=== PATIENT | male | born 1990 | race Caucasian/White ===

== ENCOUNTER 2019-07-28 20:49 | Emergency (ER) | payer MEDICARE, MEDICAID, SELFPAY ==
[2019-07-28 21:17] VITALS: BP 127/78; PULSE 113; RESP 15; TEMP 37.2; O2SAT 94; BMI 28.4
--- NOTE | 2019-07-28 22:06 | ED_ITS ---
Entered by Sarai Cisneros, acting as scribe for Baldo Pantoja MD Jul 28, 2019 20:49 HPI - Dental/Oral General: Chief complaint: Dental/Oral Stated complaint: dental pain Time Seen by Provider: 07/28/19 22:06 Source: patient, family and RN notes reviewed Mode of arrival: ambulatory Limitations: no limitations History of Present Illness: HPI Narrative: 28 yo male presents to ED with complaints of L jaw pain. The patient states he has an abscess in his L jaw. The patient's L side swelling and jaw pain began 2 days ago. MD Complaint: tooth pain Onset (ago): day(s) (2) Duration: constant Severity: severe Relieving factors: nothing Exacerbating factors: chewing, cold, heat, drinking fluids and swallowing Context: poor dental care Associated symptoms: Reports fever(s) (99.0), gum swelling and painful swallowing Treatment prior to arrival: none Review of Systems Const: Reports: fever (99.0) Eyes: Denies: blurry vision or eye discomfort ENMT: Reports: painful swallowing Card: Denies: chest pain Resp: Denies: shortness of breath GI: Denies: abdominal pain, nausea, vomiting or diarrhea : Denies: painful urination Musc: Denies: neck pain or back pain Skin/Breast: Denies: rash Neuro: Denies: headache Psych: Denies: depression Pedro/Lymph: Denies: easy bruising All/Imm: Denies: hives Physical Exam Const: COMMON NORMALS: no apparent distress, oriented x3 and healthy appearing HENMT: COMMON NORMALS: normocephalic and head/scalp atraumatic HEAD & SCALP: normocephalic and atraumatic OTHER: Has an abscess to left lower molar with slight swelling. No trismus Eye: COMMON NORMALS: PERRL and EOMs intact bilaterally PUPIL: Yes PERRL Neck/C-Spine: COMMON NORMALS: full ROM and supple Chest: COMMONS NORMALS: inspection of chest normal and palpation of chest normal Resp: COMMON NORMALS: normal respiratory effort, no retractions, no use of accessory muscles and clear to auscultation bilaterally AUSCULTATION: clear to auscultation bilaterally Cardio: COMMON NORMALS: regular rate, regular rhythm and no murmurs RATE: regular rate RHYTHM: regular rhythm GI: COMMON NORMALS: normal to inspection, nondistended, normoactive bowel sounds, soft to palpation, non-tender and no masses PALPATION: Yes soft Extremity: COMMON NORMALS: normal to inspection and full ROM Neuro: COMMON NORMALS: oriented x3, moves all extremities and no focal motor deficits Psych: COMMON NORMALS: mental status grossly normal, thought process normal a nd cooperative THOUGHT PROCESS: normal thought process Skin: COMMON NORMALS: no rashes or lesions noted and no wounds GENERAL SKIN EXAM: no rashes or lesions noted Procedures Abscess I/D Site: oral Side (if applicable): left Local Anesthetic: bupivacaine 0.5% Amount of anesthesia used (mL): 10 Technique: incised with #11 blade Amount of fluid expressed (mL): 10 Irrigation: No Packing used?: none Course Vital Signs: Vital signs: Vital Signs Temperature 99.0 F 07/28/19 22:47 Pulse Rate 100 07/28/19 22:47 Respiratory Rate 16 07/28/19 22:47 Blood Pressure 139/66 07/28/19 22:47 Pulse Oximetry 97 07/28/19 22:47 MDM - Dental/Oral MDM Narrative: Medical decision making narrative: Patient presents here with a dental abscess. I incised and drained the abscess and he is to follow-up with a dentist soon as possible. We will place him on Keflex along with Naprosyn. Patient has no trismus and is stable for discharge. Discharge Plan Discharge Patient Disposition: Home, Self-Care Clinical Impression: Dental abscess Condition: Stable Prescriptions: New Keflex 500 mg capsule 500 mg PO Q6H 7 Days Qty: 28 RF: 0 EC-Naprosyn 500 mg tablet,delayed release (DR/EC) 500 mg PO BID PRN (Reason: pain) Qty: 20 RF: 0 Discharge Orders: Discharge Order (Routine); Ordered 07/28/19 Ordered By: Baldo Pantoja Referrals: Warren Castro FNP [Family Provider] - Discharge Diet: Advance as tolerated Discharge Activity: Resume usual activity Patient Instructions: Dental Abscess (ED) Coding Level of Care Code ED Puzzle Assembler for Chg Fwd The documentation recorded by the Blayne de la vega Valerie R accurately reflects the service I personally performed and the decisions made by Scarlett tobias Korby, MD Jul 28, 2019 20:49
[2019-07-28 22:37] VITALS: BP 139/66; PULSE 93; RESP 16; TEMP 37.2; O2SAT 95
[2019-07-28 22:47] VITALS: BP 139/66; PULSE 100; RESP 16; TEMP 37.2; O2SAT 97
[2019-07-28] MEDS: naproxen 500 mg Tablet PO (23:00)
== END 2019-07-28 23:00 | disposition home or self-care (01) ==
PROVIDERS: Emergency Provider Emergency Medicine; Family Provider Nurse Practitioner Family
DX: K04.7 Periapical abscess without sinus (principal)
CPT/HCPCS: 41800; 99281; 99282; J3490

== ENCOUNTER → 2020-05-24 09:45 | Outpatient (BNVA) | payer MEDICARE, MEDICAID, SELFPAY | PROVIDERS: Family Provider Nurse Practitioner Family; Visit Provider Registered Nurse | DX: Z20.828 Contact with and (suspected) exposure to other viral communicable diseases (principal); R05 Cough | CPT/HCPCS: 87635 ==

== ENCOUNTER → 2020-08-26 13:19 | Outpatient (BNVA) | payer MEDICARE, MEDICAID, SELFPAY | PROVIDERS: Family Provider Nurse Practitioner Family; Visit Provider Psychiatry & Neurology Psychiatry | DX: F33.1 Major depressive disorder, recurrent, moderate (principal); F17.200 Nicotine dependence, unspecified, uncomplicated; F15.10 Other stimulant abuse, uncomplicated; F70 Mild intellectual disabilities | CPT/HCPCS: 99204 ==

== ENCOUNTER → 2020-11-05 10:16 | Outpatient (BNVA) | payer MEDICARE, MEDICAID, SELFPAY | PROVIDERS: Family Provider Nurse Practitioner Family; Visit Provider Psychiatry & Neurology Psychiatry | DX: F70 Mild intellectual disabilities (principal); F15.10 Other stimulant abuse, uncomplicated; F17.200 Nicotine dependence, unspecified, uncomplicated; F33.1 Major depressive disorder, recurrent, moderate | CPT/HCPCS: 99213 ==

== ENCOUNTER → 2020-12-24 10:20 | Outpatient (BNVA) | payer MEDICARE, MEDICAID, SELFPAY | PROVIDERS: Family Provider Nurse Practitioner Family; Visit Provider Surgery | DX: Z01.812 Encounter for preprocedural laboratory examination (principal); Z20.822 Contact with and (suspected) exposure to COVID-19 | CPT/HCPCS: 87635 ==

== ENCOUNTER → 2021-01-06 13:55 | Outpatient (BNVA) | payer MEDICARE, MEDICAID, SELFPAY | PROVIDERS: Family Provider Nurse Practitioner Family; Visit Provider Surgery | DX: Z11.52 Encounter for screening for COVID-19 (principal); Z20.822 Contact with and (suspected) exposure to COVID-19 | CPT/HCPCS: 87635 ==

== ENCOUNTER 2021-01-10 07:10 | Day surgery (SDC) | payer MEDICARE, MEDICAID, SELFPAY ==
--- NOTE | 2021-01-10 07:24 | P.HP_ITS ---
Same Day Surgery H&P Indication for Procedure/HPI DATE OF PROCEDURE: January 10, 2021 CHIEF COMPLAINT/INDICATIONFOR SURGICAL PROCEDURE: Abdominal pain PREOP DIAGNOSIS: Hematemesis PLANNED PROCEDRUE: Operation Date: 01/10/21 07:45 Proposed Procedures p EGD 99489 K90.0(Not Applicable) - Ramone Kevin MD This is a 29 years old gentleman presents to my practice with history of 1 week abdominal pain associated with greasy and spicy food that makes it worse and gets better when he ingests milk or ice tea. Patient describes the pain as more dull aching without being referred have been having persistent nausea and reports vomiting of blood. He also reports to me that his gallbladder was removed Back in [address] Alex and he denies history of peptic ulcer disease or previous upper endoscopies. Also denies being on blood thinners.Patient is referred to me today for further evaluation and potential intervention in the form of endoscopy for diagnostic purposes. Interim history 01/10/2021 Patient comes today for diagnostic EGD Medications/Allergies* Allergies/Adverse Reactions Allergy/AdvReac Type Severity Reaction Status Date / Time hydrocodone Allergy Intermediate ADR-Irritab Verified 01/10/21 07:25 le latex Allergy Intermediate ALGY-Rash Verified 01/10/21 07:25 morphine Allergy Intermediate ADR-Irritab Verified 01/10/21 07:25 le Pertinent History/Comorbid Conditions* Social History Smoking and tobacco status: current every day smoker cigarettes Packs smoked per day: 0.25 Years cigarettes smoked: 12 and smokeless tobacco Smokeless tobacco user: snuff Smokeless tobacco details: 1/2 day/ can Quit status (tobacco): has tried quititng Number of times tried to quit tobacco: 1 Second hand smoke exposure: No Alcohol intake: current Household members: family Current gender identity: Male Pertinent Exam Findings alert, clear to auscultation bilaterally and procedure specific exam findings (Abdominal examination nontender nondistended soft) Recommendations Surgery/Procedure today (Diagnostic EGD with possible biopsy) Other Plans: Plan of care; After thorough history and physical examination and reviewing the chart, plan to perform a diagnostic esophagogastroduodenoscopy with possible biopsy in the GI lab. I discussed with the patient in detail the risk,benefits,alternatives and indications.The risk of aspiration, bleeding, soft tissue injury, perforation of the stomach/esophagus and other potential concomitant complications were explained to the patient in details,aslo the potential need for Thoracic and or Abdominal surgery to repair any complications.The patient understood this well and did agree to proceed. Rationale was carefully and clearly discussed with the patient.Appropriate informed consent have been reviewed and signed All questions have been answered and all concerns have been addressed to patient's satisfaction. Coding Level of Care Code Acute Business Process Engineer for Liya Hodgson
--- NOTE | 2021-01-10 07:36 | ANES.PREANE2 ---
Pre-Anesthetic Assessment Pre-Anesthetic Assessment: Height/Weight: Height 1.96 m Preop Diagnosis: Hematemesis Proposed Procedure: Operation Date: 01/10/21 07:45 Proposed Procedures p EGD 33238 K90.0(Not Applicable) - Ramone Kevin MD Was Beta Nai taken within 24 hours: N/A Was Clonidine taken within 24 hours: N/A Social: Social History: Tobacco (chews and smokes) and No alcohol Exam: Pre-Anes Outpt Exam: alert, oriented x 3, clear to auscultation bilaterally and regular rate & rhythm Airway: Submandibular: WNL Cervical ROM: WNL MP: 2 Dentition: Chipped Additional comments: Very poor dentition Pulmonary: Pulmonary: COPD Metabolic: Metabolic: Morbid obesity Neuropsych: Neuropsych: Depression Anesthetic Plan: ASA status: 2 Anesthesia: MAC Risk of > 500 ml blood loss (7ml/kg in children): No PFSH Anesthesia PFSH: Social History Smoking and tobacco status: current every day smoker cigarettes Packs smoked per day: 0.25 Years cigarettes smoked: 12 and smokeless tobacco Smokeless tobacco user: snuff Smokeless tobacco details: 1/2 day/ can Quit status (tobacco): has tried quititng Number of times tried to quit tobacco: 1 Second hand smoke exposure: No Alcohol intake: current Household members: family Current gender identity: Male Data Anesthesia Cardiac Studies: No Data to Display
[2021-01-10 07:42] VITALS: BP 120/78; PULSE 61; RESP 18; TEMP 36.6; O2SAT 98
[2021-01-10] MEDS: sodium chloride 0.9% 1,000 ML 30 ML IV (07:54)
[2021-01-10 08:13] VITALS: BP 113/71; PULSE 83; RESP 20; TEMP 36.5; O2SAT 93
[2021-01-10 08:28] VITALS: BP 126/74; PULSE 71; RESP 18; O2SAT 95
--- NOTE | 2021-01-10 08:44 | ANE.PACU2 ---
Inpatient post-anesthesia follow up: Airway intact: Yes Vital signs: Temperature 97.7 F Pulse Rate 71 Respiratory Rate 18 Blood Pressure 126/74 Pulse Oximetry 95 Oxygen Delivery Me thod Room Air Oxygen Flow Rate Fraction of Inspir ed Oxygen Hydration adequate: Yes Mental status: Baseline
[2021-01-11 06:44] LABS: H. Pylori / CLO Test Negative
== END 2021-01-10 08:53 | disposition home or self-care (01) ==
PROVIDERS: Visit Provider Surgery
PROC: 0DJ08ZZ Inspection of Upper Intestinal Tract, Via Natural or Artificial Opening Endoscopic (ICD-10-PCS; CPT 43235; principal; 2021-01-10 07:45)
DX: K92.0 Hematemesis (principal); R10.9 Unspecified abdominal pain; K20.90 Esophagitis, unspecified without bleeding; K21.9 Gastro-esophageal reflux disease without esophagitis; K29.60 Other gastritis without bleeding; F17.210 Nicotine dependence, cigarettes, uncomplicated; J44.9 Chronic obstructive pulmonary disease, unspecified; E66.01 Morbid (severe) obesity due to excess calories; Z68.31 Body mass index [BMI] 31.0-31.9, adult
CPT/HCPCS: 43239; 87077; J2704; J7030

== ENCOUNTER 2022-02-13 05:52 | Day surgery (SDC) | payer MEDICAID, SELFPAY ==
[2022-02-10 07:58] VITALS: BMI 35.4
[2022-02-13 06:14] VITALS: BP 130/82; PULSE 51; RESP 18; TEMP 36.6; O2SAT 99
[2022-02-13] MEDS: sodium chloride 0.9% 1,000 ML 30 ML IV (06:24)
--- NOTE | 2022-02-13 07:08 | ANES.PREANE2 ---
Pre-Anesthetic Assessment Height/Weight: Height 1.91 m Weight 128.82 kg Temp Pulse Resp BP Pulse Ox O2 Del Method 97.9 F 51 L 18 130/82 99 02/13/22 06:14 02/13/22 06:14 02/13/22 06:14 02/13/22 06:14 02/13/22 06:14 02/13/22 06:14 Preop Diagnosis: post prandial pain Operation Date: 02/13/22 07:30 Proposed Procedures p EGD 76657,R10.9(Not Applicable) - Reji Gottlieb MD Familial anesthetic complications: None Was Beta Nai taken within 24 hours: N/A Was Clonidine taken within 24 hours: N/A Last intake: Intake Last Liquid Date 02/12/22 Last Liquid Time 21:30 Last Solid Date 02/12/22 Last Solid Time 21:30 Social Alcohol and Tobacco 0.5 pack(s) per day Exam alert, oriented x 3 and clear to auscultation bilaterally Airway Submandibular: within normal limits Cervical ROM: within normal limits Mallampati: Class III Dentition: chipped Comments: Comments: multiple chipped and broken teeth History/ROS No significant history except as noted Pulmonary None reported CV/HEM None reported None reported Hepatic None reported GI Gastroesophageal Reflux Disease Metabolic None reported Musc/skel None reported Neuropsych None reported Anesthetic Plan ASA status: 2 Anesthesia: Anesthesia Evaluation and MAC Risk of > 500 ml blood loss (7ml/kg in children): No Medications/Allergies Home Medications Medication Instructions Recorded Confirmed Last Taken Type pantoprazole 40 mg tablet,delayed 40 mg PO QAM #90 tabs 01/09/22 02/13/22 Unknown Rx release Allergies Allergy/AdvReac Type Severity Reaction Status Date / Time latex Allergy Intermediate ALGY-Rash Verified 02/13/22 06:08 Current Medications Generic Name Dose Route Start Last Admin Trade Name Freq PRN Reason Stop Dose Admin Sodium Chloride 1,000 mls @ 30 mls/hr 02/13/22 06:15 02/13/22 06:24 Sodium Chloride 0.9% IV 02/14/22 06:14 30 mls/hr .Q24H EAN Administration PFSH Anesthesia Social History Smoking and tobacco status: current every day smoker cigarettes Packs smoked per day: 0.25 Years cigarettes smoked: 12 and smokeless tobacco Smokeless tobacco user: snuff Smokeless tobacco details: 1/2 day/ can Quit status (tobacco): has tried quititng Number of times tried to quit tobacco: 1 Second hand smoke exposure: No Alcohol intake: current Household members: family Current gender identity: Male Data Anesthesia Cardiac Studies: No Data to Display
--- NOTE | 2022-02-13 07:24 | W.PM.OPSFHP ---
Same Day Surgery H&P Indication for Procedure/HPI DATE OF PROCEDURE: February 13, 2022 CHIEF COMPLAINT/INDICATIONFOR SURGICAL PROCEDURE: Epigastric pain PREOP DIAGNOSIS: post prandial pain PLANNED PROCEDURE: Operation Date: 02/13/22 07:30 Proposed Procedures p EGD 33816,R10.9(Not Applicable) - Reji Gottlieb MD Medications/Allergies* Allergies/Adverse Reactions Allergy/AdvReac Type Severity Reaction Status Date / Time latex Allergy Intermediate ALGY-Rash Verified 02/13/22 06:08 Current Medications: Generic Name Dose Route Start Last Admin Trade Name Freq PRN Reason Stop Dose Admin Sodium Chloride 1,000 mls @ 30 mls/hr 02/13/22 06:15 02/13/22 06:24 Sodium Chloride 0.9% IV 02/14/22 06:14 30 mls/hr .Q24H EAN Administration Pertinent History/Comorbid Conditions* Social History Smoking and tobacco status: current every day smoker cigarettes Packs smoked per day: 0.25 Years cigarettes smoked: 12 and smokeless tobacco Smokeless tobacco user: snuff Smokeless tobacco details: 1/2 day/ can Quit status (tobacco): has tried quititng Number of times tried to quit tobacco: 1 Second hand smoke exposure: No Alcohol intake: current Household members: family Current gender identity: Male Pertinent Exam Findings alert, oriented x 3, clear to auscultation bilaterally, regular rate & rhythm, operative site marked and procedure specific exam findings Recommendations Surgery/Procedure today Coding Level of Care Code Acute Pilot Plant Technician for Liya Hodgson
[2022-02-13 07:50] VITALS: BP 133/67; PULSE 68; RESP 18; TEMP 36.1; O2SAT 94
[2022-02-13 08:04] VITALS: BP 135/80; PULSE 65; RESP 16; TEMP 36.2; O2SAT 96
--- NOTE | 2022-02-13 13:01 | ANE.PACU2 ---
Inpatient post-anesthesia follow up: Airway intact: Yes Vital signs: Temperature 97.1 F Pulse Rate 65 Respiratory Rate 16 Blood Pressure 135/80 Pulse Oximetry 96 Oxygen Delivery Me thod Room Air Oxygen Flow Rate Fraction of Inspir ed Oxygen Hydration adequate: Yes Nausea and vomiting: No Pain level: 1 Mental status: Baseline
[2022-02-14 13:37] LABS: H. Pylori / CLO Test Negative
== END 2022-02-13 08:39 | disposition home or self-care (01) ==
PROVIDERS: PCP Registered Nurse; Visit Provider Internal Medicine
PROC: 0DJ08ZZ Inspection of Upper Intestinal Tract, Via Natural or Artificial Opening Endoscopic (ICD-10-PCS; CPT 43235; principal; 2022-02-13 07:30)
DX: R10.9 Unspecified abdominal pain (principal); K29.70 Gastritis, unspecified, without bleeding; K21.9 Gastro-esophageal reflux disease without esophagitis; F17.210 Nicotine dependence, cigarettes, uncomplicated
CPT/HCPCS: 43239; 87077; J2704; J7030